=== PATIENT | male | born 1990 | race Asian ===

== ENCOUNTER 2018-03-29 23:28 | Inpatient (IN) | payer BC, OTHER ==
[~2018-03-29] VITALS: Ht 157.5 cm; Wt 59.2 kg
[2018-03-30] MEDS ORDERED: SODIUM CHLORIDE FLUSH 10ML SYR IVF ONE
[2018-03-30 00:22] LABS: CULTURE INDICATED? YES; MICROSCOPIC INDICATED
[2018-03-30 00:23] LABS: INTERNATIONAL NORMALIZED RATIO 0.99 (0.93-1.1); MEAN CORPUSCULAR HEMOGLOBIN 31.6 pg (27.5-34.5); MEAN CORPUSCULAR HGB CONC 33.5 g/dL (33.2-36.2); MEAN CORPUSCULAR VOLUME 94.5 fL (81-97); MEAN PLATELET VOLUME 7.7 fL (7.4-10.4); PLATELET COUNT 268 x10^3/uL (130-400); PROTHROMBIN TIME 10.2 Seconds (9.6-11.5); RED BLOOD COUNT 4.66 x10^6/uL (4.38-5.82); RED CELL DISTRIBUTION WIDTH 14.2 % (9.4-14.8)
[2018-03-30 00:29] LABS: AMPHETAMINE SCREEN, URINE Negative (Negative); BARBITURATE SCREEN, URINE Negative (Negative); BENZODIAZEPINE SCREEN, URINE Negative (Negative); CANNABINOID SCREEN, URINE Negative (Negative); COCAINE SCREEN, URINE Negative (Negative); METHADONE SCREEN, URINE Negative (Negative); OPIATE SCREEN, URINE Negative (Negative)
[2018-03-30] MEDS ORDERED: PLEASE ENTER ALLERGIES MC SCH ×2 (00:30→01:00)
[2018-03-30 00:31] LABS: CHLORIDE 107 mmol/L (98-107)
[2018-03-30 00:32] LABS: ALANINE AMINOTRANSFERASE 58 U/L (12-78); ALBUMIN 3.8 g/dL (3.4-5.0); ANION GAP 11 mmol/L (5-15); CALCIUM 8.4 mg/dL (8.5-10.1); CREATININE 1.01 mg/dL (0.7-1.3); SALICYLATE LEVEL < 1.7 mg/dL (2.8-20.0)
[2018-03-30 00:44] LABS: BASOPHILS # (AUTO) 0.19 x10^3/uL (0-0.1); BASOPHILS % (AUTO) 1 % (0-1); EOSINOPHILS # (AUTO) 0.01 x10^3/uL (0-0.4); EOSINOPHILS % (AUTO) 0 % (1-7); LYMPHOCYTES # (AUTO) 1.05 x10^3/uL (1-3.4); LYMPHOCYTES % (AUTO) 7 % (22-44); MD SCAN; MONOCYTES # (AUTO) 1.25 x10^3/uL (0.2-0.8); MONOCYTES % (AUTO) 8 % (2-9); NEUTROPHILS # (AUTO) 13.18 x10^3/uL (1.8-6.8); NEUTROPHILS % (AUTO) 84 % (42-75)
[2018-03-30 00:48] LABS: ALKALINE PHOSPHATASE 78 U/L (45-117); BILIRUBIN,TOTAL 1.5 mg/dL (0.2-1.0); CREATINE KINASE, TOTAL 1520 U/L (39-308); TOTAL PROTEIN 7.9 g/dL (6.4-8.2)
[2018-03-30 00:56] LABS: ACETAMINOPHEN < 2 mcg/mL (10-30)
[2018-03-30] MEDS ORDERED: SODIUM CHLORIDE 0.9% 1,000ML IVBOLUS ONE ×2 (01:00)
[2018-03-30] MEDS ORDERED: ZIPRASIDONE 20 MG INJ IM ONE ×2 (01:29→01:30)
[2018-03-30] MEDS ORDERED: CEFTRIAXONE 2 GM in SODIUM CHLORIDE 0.9% 50 ML IV SCH (01:30)
[2018-03-30] MEDS ORDERED: CEFTRIAXONE PMX 2GM/50ML 50 ML ONE (01:36)
[2018-03-30] MEDS ORDERED: VANCOMYCIN PMX 1GM/200ML 200 ML IV ONE (02:00)
[2018-03-30] MEDS ORDERED: CEFTRIAXONE PMX 2GM/50ML 50 ML IVPB ONE (02:00)
[2018-03-30] MEDS ORDERED: hydrALAzine 20 MG/ML, 1ML IVPush PRN (02:00)
[2018-03-30] MEDS ORDERED: ONDANSETRON ODT 4 MG PO PRN (02:00)
[2018-03-30] MEDS ORDERED: VANCOMYCIN PER PHARMACY MC PRN (02:00)
[2018-03-30] MEDS ORDERED: BISACODYL 10 MG SUPP PR PRN (02:00)
[2018-03-30] MEDS ORDERED: DOCUSATE 100 MG CAPSULE PO PRN (02:00)
[2018-03-30] MEDS ORDERED: ONDANSETRON 2MG/ML, 2ML IVPush PRN (02:00)
[2018-03-30] MEDS ORDERED: POLYETHYLENE GLYCOL 17 GM PACKET PO PRN (02:00)
[2018-03-30] MEDS ORDERED: PROMETHAZINE 25 MG/ML, 1ML IM PRN (02:00)
[2018-03-30] MEDS ORDERED: PHARMACOKINETIC MONITORING MC PRN (02:30)
[2018-03-30] MEDS ORDERED: PHARMACOKINETIC CONSULTATION MC ONE (02:30)
[2018-03-30] MEDS ORDERED: ZIPRASIDONE 20 MG INJ IM PRN (02:30)
[2018-03-30 02:39] LABS: HEMOGLOBIN A1C 5.2 % (4.2-6.3)
[2018-03-30 02:49] LABS: C-REACTIVE PROTEIN, QUANT 1.6 mg/dL (0.02-0.49); FREE T4 (FREE THYROXINE) 1.07 ng/dL (0.76-1.46); THYROID STIMULATING HORMONE 1.56 mIU/L (0.358-3.740)
[2018-03-30 03:22] LABS: HCT (SEDRATE) 38.7 % (39.2-51.8)
[2018-03-30 03:55] VITALS: BP 112/76
[2018-03-30] MEDS: SODIUM CHLORIDE 0.9% 1,000 ML IV SCH ×3 (04:31→20:35)
[2018-03-30] MEDS: VANCOMYCIN 1,200 MG in SODIUM CHLORIDE 0.9% 250 ML IV SCH ×2 (05:00→16:02)
[2018-03-30 07:44] VITALS: BP 119/74
[2018-03-30] MEDS ORDERED: MORPHINE SULFATE 4 MG/ML, 1ML ONE ×2 (09:13→12:27)
[2018-03-30] MEDS: morphine SULFATE 10 MG/ML, 1ML IVPush PRN ×2 (09:19→12:32)
[2018-03-30] MEDS ORDERED: LIDOCAINE-MPF 1%, 5ML ONE (11:53)
[2018-03-30] MEDS: HEPARIN 5,000 UNITS/ML, 1ML SQ SCH ×2 (13:00→20:33)
[2018-03-30 13:14] VITALS: BP 111/64
[2018-03-30 20:00] VITALS: BP 116/72
[2018-03-31] VITALS: BP 112/60
[2018-03-31 02:10] VITALS: BP 109/66
[2018-03-31] MEDS ORDERED: ACETAMINOPHEN 325 MG TABLET PO PRN (02:30)
[2018-03-31] MEDS ORDERED: ACETAMINOPHEN 325 MG TABLET ONE (02:30)
[2018-03-31 04:00] VITALS: BP 102/62
[2018-03-31] MEDS: VANCOMYCIN 1,200 MG in SODIUM CHLORIDE 0.9% 250 ML IV SCH (04:17)
[2018-03-31] MEDS: SODIUM CHLORIDE 0.9% 1,000 ML IV SCH (04:17)
[2018-03-31] MEDS: HEPARIN 5,000 UNITS/ML, 1ML SQ SCH (04:18)
[2018-03-31 05:27] LABS: BASOPHILS # (AUTO) 0.04 x10^3/uL (0-0.1); BASOPHILS % (AUTO) 0 % (0-1); EOSINOPHILS # (AUTO) 0.15 x10^3/uL (0-0.4); EOSINOPHILS % (AUTO) 1 % (1-7); LYMPHOCYTES # (AUTO) 1.49 x10^3/uL (1-3.4); LYMPHOCYTES % (AUTO) 14 % (22-44); MD NO; MEAN CORPUSCULAR HEMOGLOBIN 32.5 pg (27.5-34.5); MEAN CORPUSCULAR HGB CONC 34.5 g/dL (33.2-36.2); MEAN CORPUSCULAR VOLUME 94.4 fL (81-97); MEAN PLATELET VOLUME 7.3 fL (7.4-10.4); MONOCYTES # (AUTO) 0.26 x10^3/uL (0.2-0.8); MONOCYTES % (AUTO) 2 % (2-9); NEUTROPHILS # (AUTO) 8.84 x10^3/uL (1.8-6.8); NEUTROPHILS % (AUTO) 82 % (42-75); PLATELET COUNT 151 x10^3/uL (130-400); RED BLOOD COUNT 3.55 x10^6/uL (4.38-5.82)
[2018-03-31 05:35] LABS: ALBUMIN 2.6 g/dL (3.4-5.0); CHLORIDE 105 mmol/L (98-107)
[2018-03-31 05:41] LABS: ALANINE AMINOTRANSFERASE 51 U/L (12-78); ALKALINE PHOSPHATASE 50 U/L (45-117); ANION GAP 10 mmol/L (5-15); BILIRUBIN,TOTAL 1.1 mg/dL (0.2-1.0); CALCIUM 7.3 mg/dL (8.5-10.1); CHOLESTEROL, TOTAL 116 mg/dL (140-239); CREATININE 0.74 mg/dL (0.7-1.3); HDL CHOL % 51 % (26-37); HDL CHOLESTEROL (DIRECT) 59 mg/dL (40-60); LDL CHOLESTEROL,CALCULATED 28 mg/dL (54-169); LDL/HDL RATIO 0.5 (0.5-3.0); TRIGLYCERIDES 144 mg/dL (50-200); VLDL CHOLESTEROL 29 mg/dL (0-25)
[2018-03-31 07:48] VITALS: BP 133/78
== END 2018-03-31 12:19 | disposition left against medical advice (07) | DRG 71 ==
LOC: ED 03-30 01:30 → EDBD 03-30 01:52 → EDIP 03-30 01:52 → 4WST 03-30 03:51
PROVIDERS: ADMIT Internal Medicine; ATTEND Internal Medicine
PROC: 0T9B70Z Drainage of Bladder with Drainage Device, Via Natural or Artificial Opening (ICD-10-PCS; principal; 2018-03-30)
DX: G93.40 Encephalopathy, unspecified (principal); E87.2 Acidosis; K56.7 Ileus, unspecified; M62.82 Rhabdomyolysis; N17.9 Acute kidney failure, unspecified; D72.829 Elevated white blood cell count, unspecified; E86.0 Dehydration; Z53.29 Procedure and treatment not carried out because of patient's decision for other reasons; R74.0 Nonspecific elevation of levels of transaminase and lactic acid dehydrogenase [LDH]; S00.81XA Abrasion of other part of head, initial encounter; S30.811A Abrasion of abdominal wall, initial encounter; S30.810A Abrasion of lower back and pelvis, initial encounter; S60.512A Abrasion of left hand, initial encounter; S60.511A Abrasion of right hand, initial encounter; S80.02XA Contusion of left knee, initial encounter; S80.01XA Contusion of right knee, initial encounter; V89.2XXA Person injured in unspecified motor-vehicle accident, traffic, initial encounter; Y93.89 Activity, other specified; Y92.89 Other specified places as the place of occurrence of the external cause
CPT/HCPCS: 36415; 80053; 80061; 80307; 80329; 81001; 82140; 82550; 82962; 83036; 83605; 83735; 84145; 84439; 84443; 85025; 85610; 85651; 85730; 86140; 87040; 87086; 93005; 96372; 96374; G0378; J0696; J1644; J3370; J3486; G0480; J2270; J7030; J7050